=== PATIENT | female | born 1945 | race Caucasian/White ===

== ENCOUNTER 2020-10-22 14:02 | Day surgery (SDC) | payer MEDICARE ==
[2020-10-22] MEDS ORDERED: Depo-Medrol 40 MG/ML IM ONE (14:03)
[2020-10-22] MEDS ORDERED: Sodium Chloride 0.9(Preservative Free) 10 ML IJ ONE (14:03)
[2020-10-22] MEDS ORDERED: DIPRIVAN 200 MG/20 ML IV ONE (15:36)
[2020-10-22] MEDS ORDERED: Lactated Ringers 1,000 ML IV ONE (16:31)
--- NOTE | 2020-10-23 11:35 | XRAY ---
31 seconds fluoroscopy time in surgery for right L3-L5 transforaminal NICCI.
== END 2020-10-22 16:05 | disposition home or self-care (01) ==
LOC: SDC-PAIN 14:02
PROVIDERS: ATTEND Psychiatry & Neurology Pain Medicine
DX: M54.16 Radiculopathy, lumbar region (principal); J44.9 Chronic obstructive pulmonary disease, unspecified; E03.9 Hypothyroidism, unspecified; I73.9 Peripheral vascular disease, unspecified; Z79.899 Other long term (current) drug therapy
CPT/HCPCS: 64483; 64484; 72100; 77003; J1030; J2704; Q9966

== ENCOUNTER 2020-12-03 07:57 | Day surgery (SDC) | payer MEDICARE, MEDICAID ==
[2020-12-03] MEDS ORDERED: Xylocaine 1% Vial 30 ML PF IJ ONE (07:58)
[2020-12-03] MEDS ORDERED: Sodium Chloride 0.9(Preservative Free) 10 ML IJ ONE (07:58)
[2020-12-03] MEDS ORDERED: Depo-Medrol 40 MG/ML IM ONE (07:58)
[2020-12-03] MEDS ORDERED: DIPRIVAN 200 MG/20 ML IV ONE (09:35)
[2020-12-03] MEDS ORDERED: Lactated Ringers 1,000 ML IV ONE (15:53)
--- NOTE | 2020-12-04 11:53 | XRAY ---
14 seconds of fluoroscopy was used in surgery for a lumbar NICCI.
--- NOTE | 2020-12-06 23:46 | XRAY ---
Indication: Lumbar NICCI. Intraoperative fluoroscopy was provided for 14 seconds. A single lateral digital spot image submitted for interpretation demonstrates a posterior needle tip projected over the posterior aspect of the lower L4 spinal canal. Contrast has been injected for needle tip placement. Correlate with intraoperative findings/report.
== END 2020-12-03 10:18 | disposition home or self-care (01) ==
LOC: SDC-PAIN 07:57
PROVIDERS: ATTEND Psychiatry & Neurology Pain Medicine
DX: M54.16 Radiculopathy, lumbar region (principal); Z79.899 Other long term (current) drug therapy
CPT/HCPCS: 62323; 72020; 77003; J1030; J2001; J2704; Q9966